=== PATIENT | male | born 1960 | race Caucasian/White ===

== ENCOUNTER 2023-06-23 21:08 | Inpatient (IN) | payer MEDICARE, MEDICAID ==
[2023-06-23] VITALS (9 sets, daily range): BP systolic 49–124; BP diastolic 22–106
[~2023-06-23] VITALS: Ht 175.3 cm; Wt 121.0 kg
[~2023-06-23 21:08] MED LIST: AMLODIPINE BESYL5 MG PO; SEROQUEL XR150 MG PO; SEROQUEL100 MG PO; SEROQUEL50 MG PO; SERTRALINE HYD150 MG PO; SERTRALINE100 MG PO; SYNTHROID25 MCG PO
[2023-06-23 22:39] LABS: BASO% 0.2 % (0-3); IMMATURE GRANULOCYTES 1.3 % (0.0-5.0); LYMPH% 6.2 % (15-41); MEAN CELL VOLUME 82.2 fL CALC (80.0-100.0); MEAN CORPUSCULAR HGB 27.8 pG CALC (26.0-32.0); MEAN CORPUSCULAR HGB CONC 33.9 g/dL CAL (32.0-36.0); MONO% 6.8 % (2-13); NEUT# 18.43 thou/uL (1.82-7.42); NEUT% 85.5 % (42-76); RED BLOOD COUNT 6.86 mill/uL (4.70-6.10); RED CELL DISTRI WIDTH 17.3 % (11.5-15.5)
[2023-06-23 22:58] LABS: ACT PARTIAL THROMBO TIME 23.5 SECONDS (20.0-32.5); INTERNATIONAL NORMALIZED RATIO 1.5 RATIO (0.7-1.3)
[2023-06-23 23:00] LABS: ALBUMIN 4.9 g/dL (3.2-5.0); HEMATOCRIT 56.4 % (39.0-50.0); HEMOGLOBIN 19.1 g/dl (14.0-18.0); MAGNESIUM 4.2 mg/dL (1.6-2.3); POTASSIUM 4.4 mmol/l (3.5-5.1)
[2023-06-23 23:03] LABS: BILIRUBIN, TOTAL 1.5 mg/dL (0.2-1.3); CREATININE 5.1 mg/dL (0.7-1.3); TOTAL PROTEIN 9.3 g/dL (6.3-8.2)
[2023-06-23 23:30] LABS: TSH, 3RD GENERATION 2.31 uIU/mL (0.47 - 4.68)
[2023-06-24] VITALS (174 sets, daily range): BP systolic 28–191; BP diastolic 15–143
[2023-06-24 00:12] LABS: URINE BLOOD DIPSTICK Large (NEGATIVE); URINE COLOR Yellow; URINE GLUCOSE - DIPSTICK 100 mg/dL (NEGATIVE); URINE KETONE 15 mg/dL (NEGATIVE); URINE LEUK ESTERASE Negative (NEGATIVE); URINE NITRITE - DIPSTICK Negative (Negative); URINE PH 5.5 (4.5-8.0); URINE PROTEIN - DIPSTICK >=300 mg/dL (NEG-TRACE); URINE SPECIFIC GRAVITY >=1.030
[2023-06-24 00:18] LABS: URINE BACTERIA MODERATE hpf; URINE RBC 25-50 RBC/hpf (0-5); URINE SQUAMOUS EPITHELIAL CELL FEW EPI/hpf (0-FEW)
[2023-06-24 09:48] LABS: BASO% 0.2 % (0-3); IMMATURE GRANULOCYTES 4.6 % (0.0-5.0); LYMPH% 6.8 % (15-41); MEAN CELL VOLUME 85.7 fL CALC (80.0-100.0); MEAN CORPUSCULAR HGB 28.2 pG CALC (26.0-32.0); MEAN CORPUSCULAR HGB CONC 32.9 g/dL CAL (32.0-36.0); MONO% 11.3 % (2-13); NEUT# 18.94 thou/uL (1.82-7.42); NEUT% 77.1 % (42-76); RED BLOOD COUNT 5.04 mill/uL (4.70-6.10); RED CELL DISTRI WIDTH 16.3 % (11.5-15.5)
[2023-06-24 09:52] LABS: HEMATOCRIT 43.2 % (39.0-50.0); HEMOGLOBIN 14.2 g/dl (14.0-18.0)
[2023-06-24 10:15] LABS: BILIRUBIN, TOTAL 1.9 mg/dL (0.2-1.3); POTASSIUM 5.1 mmol/l (3.5-5.1)
[2023-06-24 10:33] LABS: ALBUMIN 2.7 g/dL (3.2-5.0); TOTAL PROTEIN 5.2 g/dL (6.3-8.2)
[2023-06-24 13:18] LABS: INTERNATIONAL NORMALIZED RATIO 3.2 RATIO (0.7-1.3)
[2023-06-24 17:28] LABS: POTASSIUM 4.7 mmol/l (3.5-5.1)
[2023-06-24 18:13] LABS: BASO% 0.1 % (0-3); IMMATURE GRANULOCYTES 3.2 % (0.0-5.0); LYMPH% 7.5 % (15-41); MEAN CELL VOLUME 85.4 fL CALC (80.0-100.0); MEAN CORPUSCULAR HGB 28.6 pG CALC (26.0-32.0); MEAN CORPUSCULAR HGB CONC 33.4 g/dL CAL (32.0-36.0); MONO% 6.2 % (2-13); NEUT# 12.27 thou/uL (1.82-7.42); RED BLOOD COUNT 3.78 mill/uL (4.70-6.10); RED CELL DISTRI WIDTH 16.4 % (11.5-15.5)
[2023-06-24 18:16] LABS: ALBUMIN 2.4 g/dL (3.2-5.0); BILIRUBIN, TOTAL 1.8 mg/dL (0.2-1.3); POTASSIUM 4.6 mmol/l (3.5-5.1)
[2023-06-24 18:17] LABS: INTERNATIONAL NORMALIZED RATIO 2.7 RATIO (0.7-1.3); PROTHROMBIN TIME 24.5 SECONDS (9.0-12.5)
[2023-06-24 19:05] LABS: HEMATOCRIT 32.3 % (39.0-50.0); HEMOGLOBIN 10.8 g/dl (14.0-18.0)
[2023-06-25] VITALS (23 sets, daily range): BP systolic 109–176; BP diastolic 64–100
[2023-06-25 05:52] LABS: INTERNATIONAL NORMALIZED RATIO 2.8 RATIO (0.7-1.3); PROTHROMBIN TIME 25.3 SECONDS (9.0-12.5)
[2023-06-25 05:58] LABS: ALBUMIN 2.1 g/dL (3.2-5.0); CHOLESTEROL HDL RATIO 3.5 (<4.4 (CALC))
[2023-06-25 06:06] LABS: BASO% 0.1 % (0-3); EOS% 0.1 % (0-8); HEMATOCRIT 29.7 % (39.0-50.0); HEMOGLOBIN 10.3 g/dl (14.0-18.0); IMMATURE GRANULOCYTES 5.1 % (0.0-5.0); MEAN CORPUSCULAR HGB 28.5 pG CALC (26.0-32.0); MEAN CORPUSCULAR HGB CONC 34.7 g/dL CAL (32.0-36.0); MONO% 6.5 % (2-13); NEUT# 11.47 thou/uL (1.82-7.42); NEUT% 78.2 % (42-76); RED BLOOD COUNT 3.62 mill/uL (4.70-6.10)
[2023-06-25 06:11] LABS: CREATININE 5.9 mg/dL (0.7-1.3); MAGNESIUM 2.1 mg/dL (1.6-2.3); POTASSIUM 3.5 mmol/l (3.5-5.1)
[2023-06-25 12:32] LABS: ALBUMIN 2.2 g/dL (3.2-5.0); BILIRUBIN, TOTAL 1.5 mg/dL (0.2-1.3); POTASSIUM 3.5 mmol/l (3.5-5.1); TOTAL PROTEIN 4.5 g/dL (6.3-8.2)
[2023-06-25 13:12] LABS: CREATININE 6.1 mg/dL (0.7-1.3)
== END 2023-06-25 17:55 | disposition short-term general hospital (02) | DRG 871 ==
LOC: ED 21:08 → ICU 06-24 01:41 → ED 06-24 01:45 → ICU 06-24 01:45
PROVIDERS: Family Medicine; Internal Medicine Nephrology; ADMIT Student in an Organized Health Care Education/Training Program; ATTEND Student in an Organized Health Care Education/Training Program
PROC: 0BH17EZ Insertion of Endotracheal Airway into Trachea, Via Natural or Artificial Opening (ICD-10-PCS; principal; 2023-06-24)
PROC: 5A1945Z Respiratory Ventilation, 24-96 Consecutive Hours (ICD-10-PCS; 2023-06-24)
PROC: 0T9B70Z Drainage of Bladder with Drainage Device, Via Natural or Artificial Opening (ICD-10-PCS; 2023-06-24)
PROC: 3E033XZ Introduction of Vasopressor into Peripheral Vein, Percutaneous Approach (ICD-10-PCS; 2023-06-24)
PROC: 05JYXZZ Inspection of Upper Vein, External Approach (ICD-10-PCS; 2023-06-24)
PROC: 02HV33Z Insertion of Infusion Device into Superior Vena Cava, Percutaneous Approach (ICD-10-PCS; 2023-06-24)
PROC: 30243K1 Transfusion of Nonautologous Frozen Plasma into Central Vein, Percutaneous Approach (ICD-10-PCS; 2023-06-24)
PROC: 30243K1 Transfusion of Nonautologous Frozen Plasma into Central Vein, Percutaneous Approach (ICD-10-PCS; 2023-06-24)
PROC: 30243K1 Transfusion of Nonautologous Frozen Plasma into Central Vein, Percutaneous Approach (ICD-10-PCS; 2023-06-25)
PROC: 30243K1 Transfusion of Nonautologous Frozen Plasma into Central Vein, Percutaneous Approach (ICD-10-PCS; 2023-06-25)
DX: A41.9 Sepsis, unspecified organism (principal); G92.8 Other toxic encephalopathy; R65.21 Severe sepsis with septic shock; J96.01 Acute respiratory failure with hypoxia; N17.0 Acute kidney failure with tubular necrosis; K72.00 Acute and subacute hepatic failure without coma; E87.20 Acidosis, unspecified; M62.82 Rhabdomyolysis; L97.821 Non-pressure chronic ulcer of other part of left lower leg limited to breakdown of skin; L97.811 Non-pressure chronic ulcer of other part of right lower leg limited to breakdown of skin; L03.112 Cellulitis of left axilla; L03.111 Cellulitis of right axilla; L03.314 Cellulitis of groin; E87.1 Hypo-osmolality and hyponatremia; D68.9 Coagulation defect, unspecified; L98.491 Non-pressure chronic ulcer of skin of other sites limited to breakdown of skin; E86.0 Dehydration; E66.01 Morbid (severe) obesity due to excess calories; F31.9 Bipolar disorder, unspecified; D69.6 Thrombocytopenia, unspecified
CPT/HCPCS: J3370; S0164